=== PATIENT | male | born 1970 | race African-American/Black ===

== ENCOUNTER 2025-04-02 18:00 | Emergency (ER) | payer MEDICAID ==
[~2025-04-02] VITALS: Ht 185.4 cm; Wt 71.6 kg
[2025-04-02 18:09] VITALS: BP 156/103; PULSE 80; O2SAT 100
--- NOTE | 2025-04-02 20:26 | Physician Documentation ---
History of Present Illness ~ Chief Complaint: Back Pain Stated Complaint: BACK PAIN Time Seen by MD: 20:08 HPI This 54-year-old male presents to the ED with a complaint of chronic right back pain. States that he fractured his ribs years ago. Denies any acute injury. Said over the last four days his pain is worse. He denies any urinary symptoms. States it hurts to cough Denies any numbness tingling or red flag symptoms Day of Onset: Apr 02, 2025 Medication Reconciliation Allergies: Coded Allergies: No Known Allergies (Unverified , 04/02/25) Review of Systems All Other Systems at this time: Reviewed and Negative ROS As stated above in the HPI, otherwise all systems are reviewed and negative. Physical Exam Physical Exam Vital Signs: Temperature: 98.0, Source: Temporal, Heart Rate: 80, Respiratory Rate: 16, BP: 156/103, Pulse Oximetry: 100, Weight: 71.600 Oxygen Flow Rate: 0 Physical Exam General: Alert, no apparent distress. HEENT: PERRL, EOMI, no injection, moist mucous membranes. Neck: Full range of motion. Respiratory: Lungs clear, no respiratory distress. Chest: No accessory muscle use. tipple tender to the right lumbar region Psychiatric: Normal mood and affect. Skin: Normal color, warm and dry. No edema, no ecchymosis. Progress Results/Orders Results/Orders Orders - JAVI MARES NP, Unilat (04/02/25 20:28) Completed Orders - JAVI MARES [employer] Ketorolac Trometh 30mg/Ml Vial (Toradol (04/02/25 20:30) Nohemy Saavedra (04/02/25 20:28) Medications Received in ER Medications (Trade) Dose Ordered Sig/Roni Route PRN Reason Start Time Stop Time Status Last Admin Dose Admin (Toradol inj. 30mg/ml) 30 mg ONCE ONCE IM 04/02/25 20:30 04/02/25 20:31 DC 04/02/25 21:08 30 MG Vital Signs 04/02/25 04/02/25 18:09 21:08 Temp 98.0 Pulse 80 Resp 16 18 B/P (MAP) 156/103 Pulse Ox 100 O2 Flow Rate 0 Medical Decision Making Findings 54-year-old male presents with acute lumbar and thoracic sprain. Present with any acute injury. His x-ray did not show any signs of acute fracture. I treated him for pain and advised him to pursue physical therapy if these symptoms persist Differential Dx:Considerations: Include: AAA, Aortic dissection, Appendicitis, Bowel obstruction, Cholelithiasis, Cholangitis, DJD, Fracture, Hepatitis, HNP, Musculoskeletal pain, Pancreatitis, Pyelonephritis, Renal infarction, Strain, Urinary obstruction, Urolithiasis, Urinary tract infection, Other Departure Disposition: 01 HOME / SELF CARE / HOMELESS Impression: Primary Impression: Strain of lumbar region Additional Impression: Strain of thoracic region Condition: Stable Discharge Instructions: Acute Back Pain, Adult Referrals: NO PRIMARY CARE PROVIDER (PCP) Signature Scribe Signature: c Attestation: Scribed for Javi Mares Manager Of [employer] by Javi Garcia NP . 04/02/25 20:27 JAVI MARES NP Apr 02, 2025 20:26
--- NOTE | 2025-04-02 20:54 | RADIOLOGY REPORT ---
[facility] EXAMINATION: DI RIBS,UNILAT INDICATION: prior rib fx COMPARISON: None TECHNIQUE: 6 views FINDINGS: No visualized rib or other acute fracture. No acute finding within the imaged chest or upper abdominal contents. Unremarkable soft tissues. IMPRESSION: 1. No displaced rib fracture.
[2025-04-02 21:08] VITALS: RESP 18
[2025-04-02] MEDS: ketorolac trometh 30MG/ML vial 30 MG/ML VIAL IM ONE (21:08)
[2025-04-02 21:23] VITALS: TEMP 98
== END 2025-04-02 21:28 | disposition home or self-care (01) ==
LOC: ER 18:02
DX: S39.012A Strain of muscle, fascia and tendon of lower back, initial encounter (principal); S29.012A Strain of muscle and tendon of back wall of thorax, initial encounter; R05.9 Cough, unspecified; X58.XXXA Exposure to other specified factors, initial encounter; Y93.89 Activity, other specified; Y92.89 Other specified places as the place of occurrence of the external cause; Y99.8 Other external cause status
CPT/HCPCS: 71100; 96372; 99283; J1885